=== PATIENT | female | born 2000 | race Caucasian/White ===

== ENCOUNTER 2024-03-30 12:58 | Outpatient (CLI) | payer BC, SELFPAY ==
--- NOTE | ~2024-03-30 | US_ITS ---
EXAMINATION: US soft tissue head and neck DATE: 03/30/2024 13:46 INDICATION: Localized enlarged lymph nodes. TECHNIQUE: Multiple grayscale and Doppler ultrasound images of the head and neck were obtained. COMPARISON: None FINDINGS: There are normal lymph nodes in the head and neck including in the left preauricular region in the patient's area of concern. IMPRESSION: 1. No abnormal mass or lymphadenopathy. Reviewed, dictated and finalized at location A. [employer] IN[employer]ATOR
== END 2024-03-30 12:59 | disposition home or self-care (01) ==
DX: R59.0 Localized enlarged lymph nodes (principal)
CPT/HCPCS: 76536